=== PATIENT | male | born 1995 | race Caucasian/White ===

== ENCOUNTER 2018-09-02 04:27 | Emergency (ER) | payer OTHER ==
--- NOTE | 2018-09-02 05:26 | EDM.PDOC ---
ED HPI GENERAL MEDICAL PROBLEM - General Chief Complaint: Abdominal Pain Stated Complaint: STOMACH PAIN Time Seen by Provider: 09/02/18 05:05 Source of Information: Reports: Patient History Limitations: Reports: No Limitations - History of Present Illness INITIAL COMMENTS - FREE TEXT/NARRATIVE: Otherwise healthy 23 yo who presents with concerns of abdominal pain Had some intermittent pain in the epigastrium over the last several days Last night around 8pm noticed a sukhdev-umbilical ache. Some radiation into the back. Now seem to have migrated towards the RLQ. Associated nausea, not vomiting. No diarrhea. No fever. No prior abdominal surgery Father with chrons disease upper right and upper left quadrants Pain Score (Numeric/FACES): 7 - Related Data Allergies Allergy/AdvReac Type Severity Reaction Status Date / Time No Known Allergies Allergy Verified 09/02/18 04:45 Home Meds: Home Meds FLUoxetine HCl [Prozac] 40 mg PO DAILY 09/02/18 [History] Omeprazole Magnesium [Prilosec Otc] 20 mg PO DAILY 09/02/18 [History] Past Medical History HEENT History: Reports: Impaired Vision Respiratory History: Reports: Asthma Musculoskeletal History: Reports: Fracture Psychiatric History: Reports: Anxiety Dermatologic History: Reports: Eczema Social & Family History - Tobacco Use Smoking Status *Q: Never Smoker - Caffeine Use Caffeine Use: Reports: Soda - Recreational Drug Use Recreational Drug Use: No ED ROS GENERAL - Review of Systems Review Of Systems: See Below Constitutional: Reports: No Symptoms HEENT: Reports: No Symptoms Respiratory: Reports: No Symptoms Cardiovascular: Reports: No Symptoms Endocrine: Reports: No Symptoms GI/Abdominal: Reports: Abdominal Pain, Anorexia, Nausea : Reports: No Symptoms Musculoskeletal: Reports: No Symptoms Skin: Reports: No Symptoms Neurological: Reports: No Symptoms Psychiatric: Reports: No Symptoms Hematologic/Lymphatic: Reports: No Symptoms Immunologic: Reports: No Symptoms ED EXAM, GI/ABD - Physical Exam Exam: See Below Exam Limited By: No Limitations General Appearance: Alert, No Apparent Distress Eyes: Bilateral: EOMI Ears: Normal External Exam Nose: Normal Inspection Throat/Mouth: Normal Inspection Head: Atraumatic, Normocephalic Respiratory/Chest: No Respiratory Distress, Lungs Clear Cardiovascular: Regular Rate, Rhythm GI/Abdominal Exam: Soft, Tender (sukhdev-umbilical and RLQ) Back Exam: Normal Inspection Extremities: Normal Inspection Neurological: Alert, Oriented Psychiatric: Normal Affect, Normal Mood Skin Exam: Warm, Dry Course - Vital Signs Last Recorded V/S: Last Vital Signs Temp 36.7 C 09/02/18 04:47 Pulse 121 H 09/02/18 04:47 Resp 18 09/02/18 04:47 BP 142/75 H 09/02/18 04:47 Pulse Ox 97 09/02/18 04:47 - Orders/Labs/Meds Labs: Laboratory Tests 09/02/18 09/02/18 Range/Units 05:31 05:31 WBC 10.1 (4.5-11.0) K/uL RBC 5.41 (4.30-5.90) M/uL Hgb 14.7 (12.0-15.0) g/dL Hct 44.0 (40.0-54.0) % MCV 81 (80-98) fL MCH 27 (27-31) pg MCHC 33 (32-36) % Plt Count 199 (150-400) K/uL Sodium 136 L (140-148) mmol/L Potassium 3.9 (3.6-5.2) mmol/L Chloride 101 (100-108) mmol/L Carbon Dioxide 25 (21-32) mmol/L Anion Gap 13.9 (5.0-14.0) mmol/L BUN 20 H (7-18) mg/dL Creatinine 1.1 (0.8-1.3) mg/dL Est Cr Clr Drug Dosing 102.66 mL/min Estimated GFR (MDRD) > 60 (>60) Glucose 123 H (74-106) mg/dL Calcium 9.2 (8.5-10.1) mg/dL Total Bilirubin 0.8 (0.2-1.0) mg/dL AST 36 (15-37) U/L ALT 81 H (12-78) U/L Alkaline Phosphatase 85 (46-116) U/L Total Protein 7.4 (6.4-8.2) g/dL Albumin 3.8 (3.4-5.0) g/dL Globulin 3.6 H (2.3-3.5) g/dL Albumin/Globulin Ratio 1.1 L (1.2-2.2) Lipase 114 (73-393) U/L Meds: Medications Discontinued Medications Generic Name Dose Route Start Last Admin Trade Name Freq PRN Reason Stop Dose Admin Hydromorphone HCl 1 mg 09/02/18 06:09 09/02/18 06:20 Dilaudid IVPUSH 09/02/18 06:10 1 mg ONETIME ONE Administration Sodium Chloride 85 mls @ 4 mls/sec 09/02/18 05:30 09/02/18 05:50 Normal Saline IV 09/02/18 05:31 4 mls/sec ASDIRECTED STA Administration Iopamidol 150 ml 09/02/18 05:30 09/02/18 05:50 Isovue-300 (61%) IV 09/02/18 05:31 150 ml . DIRECTED STA Administration Ondansetron HCl 4 mg 09/02/18 06:10 09/02/18 06:20 Zofran IVPUSH 09/02/18 06:11 4 mg ONETIME ONE Administration - Re-Assessments/Exams Free Text/Narrative Re-Assessment/Exam: 23 yo presents with abdominal pain Initially umbilical, now RLQ Associated nausea, anorexia. Not terribly tender but convincing history for appy Will obtain labs, CT Declining pain meds and anti-emetics 09/02/18 05:25 Free Text/Narrative Re-Assessment/Exam: Labs and imaging unremarkable. Not surprising. Safe for discharge 09/02/18 08:19 Departure - Departure Time of Disposition: 08:22 Disposition: Home, Self-Care 01 Clinical Impression: Abdominal pain Qualifiers: Abdominal location: lower abdomen, unspecified Qualified Code(s): R10.30 - Lower abdominal pain, unspecified - Discharge Information Referrals: PCP,None [Primary Care Provider] - Forms: ED Department Discharge Additional Instructions: Your work-up did not reveal a source of your pain, but was re-assuring there is not a serious illness underlying your symptoms Please use tylenol for pain and eat a bland diet Follow up with your primary doctor as needed
[2018-09-02] MEDS ORDERED: Iopamidol 612 MG/ML 150 ML Bottle IV STA (05:30)
[2018-09-02] MEDS ORDERED: HYDROmorphone 1 MG/ML Syringe IVPUSH ONE (06:09)
[2018-09-02] MEDS ORDERED: Ondansetron 4 MG/2 ML SDV IVPUSH ONE (06:10)
--- NOTE | 2018-09-02 07:56 | CRLCT ---
INDICATION: Right lower quadrant and periumbilical pain. TECHNIQUE: CT scan of the abdomen and pelvis with 150 cc of Isovue-300 given intravenously. FINDINGS: The lung bases are unremarkable. No focal abnormalities identified in the visualized portions of the liver, spleen, pancreas, and adrenal glands. Scattered small cysts in the right kidney and the lower pole of the left kidney. The kidneys are otherwise unremarkable. No hydronephrosis. No obstructing uroliths. The GI tract is incompletely distended but shows no gross abnormalities. The stomach and GE junction are not well assessed. Normal appendix. No retroperitoneal, pelvic sidewall, or mesenteric adenopathy. IMPRESSION: No acute abnormalities of the abdomen or pelvis identified. Normal appendix. Signed by: Jose M Brenner MD @09/02/2018 6:57:52 AM LYNN/Dictated by: Jose M Brenner MD @ 09/02/2018 6:59:00 AM (Electronically Signed)
== END 2018-09-02 08:32 | disposition home or self-care (01) ==
LOC: JP.ED 04:27
DX: R10.31 Right lower quadrant pain (principal); J45.909 Unspecified asthma, uncomplicated; Z79.899 Other long term (current) drug therapy
CPT/HCPCS: 36415; 74177; 80053; 83690; 85027; 96374; 96375; 99284; J1170; J2405; J7030